=== PATIENT | female | born 1960 | race Caucasian/White ===

== ENCOUNTER 2017-07-12 15:46 | Emergency (ER) | payer MEDICAID ==
--- NOTE | 2017-07-12 16:07 | Emergency Department Record ---
History of Present Illness - General Chief complaint: Dental Stated complaint: DENTAL PAIN Time Seen by Provider: 07/12/17 16:01 Source: Patient Mode of Arrival: Ambulatory Limitations: No limitations - History of Present Illness Initial comments: 56 yo female presents to ED with a CC of right upper dental pain symptoms that began 3 days ago. Patient reports mild STS to the right maxillary region as well as pain radiating to that area. Patient reports several bad teeth and is concerned about an infection to the base of her teeth. Patient denies fevers, chills, or recent illness. MD complaint: Tooth pain Onset/Timin -: Days(s) Location: Tooth # 1 - pain, dental caries, no gingival abscess is present Quality: Aching Consistency: Constant Improves with: None Worsens with: None Context- Dental: Other - Related Data Previous Rx's Medication Instructions Recorded Clindamycin HCl 300 mg PO QID #28 capsule 07/12/17 Allergies Allergy/AdvReac Type Severity Reaction Status Date / Time No Known Drug Allergies Allergy Verified 07/12/17 15:55 Travel Screening - Travel/Exposure Within Last 30 Days Have you traveled within the last 30 days?: No Review of Systems Constitutional: Denies: Chills, Fever, Malaise, Night sweats Eyes: Denies: Eye discharge, Eye pain ENT: Reports: Dental pain. Denies: Congestion, Ear pain, Epistaxis Respiratory: Denies: Cough, Dyspnea Cardiovascular: Denies: Chest pain, Dyspnea on exertion Endocrine: Denies: Fatigue, Heat or cold intolerance Gastrointestinal: Denies: Abdominal pain, Nausea, Vomiting Genitourinary: Denies: Incontinence, Retention Musculoskeletal: Denies: Arthralgia, Back pain, Gout, Joint swelling Skin: Denies: Bruising, Change in color Neurological: Denies: Abnormal gait, Confusion, Headache, Seizure Psychiatric: Denies: Anxiety Hematological/Lymphatic: Denies: Anemia, Blood Clots Past Medical History - SOCIAL HISTORY Smoking Status: Never smoker Alcohol Use: None Drug Use: None - RESPIRATORY Hx Respiratory Disorders: No - CARDIOVASCULAR Hx Cardio Disorders: No - NEURO Hx Neuro Disorders: No - GI Hx GI Disorders: No - Hx Genitourinary Disorders: No - ENDOCRINE Hx Endocrine Disorders: No - MUSCULOSKELETAL Hx Musculoskeletal Disorders: No - PSYCH Hx Psych Problems: No - HEMATOLOGY/ONCOLOGY Hx Hematology/Oncology Disorders: No Family Medical History Any Significant Family History?: No Physical Exam - General General Appearance: Alert, Oriented x3, Cooperative, Mild distress Limitations: No limitations - Head Head exam: Atraumatic, Normocephalic, Normal inspection Head exam detail: negative: Abrasion, Contusion, Beckett's sign, General tenderness, Hematoma, Laceration - Eye Eye exam: Normal appearance. negative: Conjunctival injection, Periorbital swelling, Periorbital tenderness, Scleral icterus - ENT Ear exam: negative: Auricular hematoma, Auricular trauma Nasal Exam: negative: Active bleeding, Discharge, Dried blood, Foreign body Mouth exam: negative: Drooling, Laceration, Muffled voice, Tongue elevation Teeth exam: Dental caries, Dental tenderness # Throat exam: negative: R peritonsillar mass, L peritonsillar mass - Neck Neck exam: Normal inspection. negative: Meningismus, Tenderness - Respiratory Respiratory exam: Normal lung sounds bilaterally. negative: Rales, Respiratory distress, Rhonchi, Stridor - Cardiovascular Cardiovascular Exam: Regular rate, Normal rhythm, Normal heart sounds - GI/Abdominal GI/Abdominal exam: Soft. negative: Rebound, Rigid, Tenderness - Rectal Rectal exam: Deferred - exam: Deferred - Extremities Extremities exam: Normal inspection. negative: Calf tenderness, Pedal edema, Tenderness - Back Back exam: Denies: CVA tenderness (R), CVA tenderness (L) - Neurological Neurological exam: Alert, Normal gait, Oriented X3 - Psychiatric Psychiatric exam: Normal affect, Normal mood - Skin Skin exam: Normal color. negative: Abrasion Type of lesion: negative: abrasion Course Vital Signs 07/12/17 15:51 Temperature 98.6 F Pulse Rate 73 Respiratory 18 Rate Blood Pressure 119/85 Pulse Ox 99 - Reevaluation(s) Reevaluation #1: 07/12/17 16:04 Symptoms appear to be related to dental caries to tooth #6, will initiate treatment with Clindamycin with instructions to follow-up with her dentist next week. Patient agrees with the plan as discussed. Disposition Disposition: Discharge Clinical Impression: Dental caries Disposition: Home, Self-Care Condition: (2) Stable Instructions: Dental Abscess (ED) Additional Instructions: Return to ED if your symptoms worsen or if you have any concerns. Clindamycin as directed. Call your dentist for an appointment in 3-5 days as directed. Prescriptions: Clindamycin HCl 300 mg PO QID #28 capsule Forms: Patient Portal Access Time of Disposition: 16:07 Quality - Quality Measures Quality Measures: N/A - Blood Pressure Screening Does Patient Have Any of the Following: No Blood Pressure Classification: Pre-Hypertensive BP Reading Systolic Measurement: 119 Diastolic Measurement: 85 Screening for High Blood Pressure: < Pre-Hypertensive BP, F/U Documented > [ G8950] Pre-Hypertensive Follow-up Interventions: Referral to alternative/primary care provider.
== END 2017-07-12 16:13 | disposition home or self-care (01) ==
LOC: ER 15:46
DX: K02.9 Dental caries, unspecified (principal)
CPT/HCPCS: 99282

== ENCOUNTER 2019-09-30 09:31 | Emergency (ER) | payer MEDICAID ==
[2019-09-30] MEDS ORDERED: 0.9 % SODIUM CHLORIDE 1,000 ML BAG IV ONE (09:40)
--- NOTE | 2019-09-30 09:45 | Emergency Department Record ---
History of Present Illness - General Stated Complaint: RIB PAIN Time Seen by Provider: 09/30/19 09:35 Source: Patient Mode of Arrival: Ambulatory Limitations: No limitations - History of Present Illness Initial Comments: 59 yo female presents with left upper abdominal pain for about two weeks. She states the pain is associated with nausea, diarrhea, and bloating. No fevers. No blood in the stools. The pain location moves a little toward the epigastrium at times. The diarrhea changes color and consistency at times too. No history of a screening colonoscopy. No cough, chest pain, or rash. No dysuria. MD Complaint: Abdominal pain -: Week(s) (2) Location: LLQ Radiation: LLQ Migration to: LLQ Severity: Moderate Quality: Aching, Sharp Consistency: Intermittent Improves With: Nothing Worsens With: Bowel movement Context: Other Associated Symptoms: Anorexia, Diarrhea, Nausea - Related Data Home Medications Medication Instructions Recorded Confirmed Last Taken No Home Med [NO HOME MEDS] 09/30/19 09/30/19 Unknown Allergies Allergy/AdvReac Type Severity Reaction Status Date / Time No Known Drug Allergies Allergy Verified 09/30/19 09:45 Review of Systems Constitutional: Denies: Chills, Fever, Malaise, Weakness Eyes: Denies: Eye discharge ENT: Denies: Congestion, Ear pain, Epistaxis, Throat pain Respiratory: Denies: Cough, Dyspnea, Wheezes Cardiovascular: Denies: Chest pain, Palpitations, Syncope Endocrine: Denies: Fatigue, Polydipsia, Polyuria Gastrointestinal: Reports: Abdominal pain, Diarrhea, Nausea, Vomiting. Denies: Constipation, Hematemesis, Hematochezia, Melena Genitourinary: Denies: Dysuria, Urgency Musculoskeletal: Denies: Arthralgia, Back pain, Myalgia Skin: Denies: Bruising, Change in color, Rash Neurological: Denies: Headache, Numbness, Weakness Psychiatric: Denies: Anxiety Hematological/Lymphatic: Denies: Easy bleeding, Easy bruising Past Medical History - SOCIAL HISTORY Smoking Status: Never smoker Drug Use: None - RESPIRATORY Hx Respiratory Disorders: No - CARDIOVASCULAR Hx Cardio Disorders: No - NEURO Hx Neuro Disorders: No - GI Hx GI Disorders: No - Hx Genitourinary Disorders: No - ENDOCRINE Hx Endocrine Disorders: No - MUSCULOSKELETAL Hx Musculoskeletal Disorders: No - PSYCH Hx Psych Problems: No - HEMATOLOGY/ONCOLOGY Hx Hematology/Oncology Disorders: No Physical Exam - General General Appearance: Alert, Oriented x3, Cooperative, No acute distress Limitations: No limitations - Head Head exam: Atraumatic, Normal inspection - Eye Eye exam: Normal appearance, PERRL. negative: Conjunctival injection, Scleral icterus - ENT ENT exam: Normal exam, Mucous membranes moist, Normal orophraynx Ear exam: Normal external inspection Nasal Exam: Normal inspection Mouth exam: Normal external inspection - Neck Neck exam: Normal inspection, Full ROM. negative: Tenderness - Respiratory Respiratory exam: Normal lung sounds bilaterally. negative: Respiratory distress - Cardiovascular Cardiovascular Exam: Regular rate, Normal rhythm, Normal heart sounds - GI/Abdominal GI/Abdominal exam: Soft, Tenderness (very soft and benign abdomen, tender left upper quadrant otherwise non tender). negative: Distended, Guarding, Rebound, Rigid - Rectal Rectal exam: Deferred - exam: Deferred - Extremities Extremities exam: Normal inspection. negative: Calf tenderness, Pedal edema, Tenderness - Back Back exam: Reports: CVA tenderness (L). Denies: CVA tenderness (R), Full ROM, Paraspinal tenderness, Rash noted, Tenderness, Vertebral tenderness - Neurological Neurological exam: Alert, Oriented X3. negative: Abnormal gait, Normal gait - Psychiatric Psychiatric exam: Normal affect, Normal mood. negative: Agitated, Anxious - Skin Skin exam: Dry, Intact, Normal color, Warm Course - Reevaluation(s) Reevaluation #1: 09/30/19 10:25 The CBC is normal 09/30/19 10:36 The CMP was reviewed No acute significant abnormalities 09/30/19 10:36 Lipase is normal 09/30/19 11:15 The UA is negative for infection or acute abnormality 09/30/19 12:[address] scan is normal. The patient was referred to her PCP and GI for outpatient upper and lower endoscopy We discussed the results of the tests and questions were answered. The patient is doing well and is comfortable with DC. We discussed at length reasons to immediately return to the ED as well as close follow up. The patient will call the PCP for close follow up of this ED visit to review this visit and the tests performed DC vitals were reviewed. The patient was given a copy of the radiology reports to review with their [facility] doctor for follow up Medical Decision Making - Lab Data Result diagrams: 09/30/19 09:55 09/30/19 09:55 Disposition Disposition: Discharge Clinical Impression: Abdominal pain Disposition: Home, Self-Care Condition: (1) Good Instructions: Abdominal Pain (ED) Additional Instructions: Review this ER visit and the tests performed with your family doctor Call your doctor for the next available follow up appointment Return to the ER for a recheck immediately if worse, any new concerns or questions Take the prescriptions provided as directed Referrals: Amanda Cervantes N.P. [NURSE PRACTITIONER] - DAGOBERTO JACOBS [DOCTOR OF OSTEOPATH] - [facility] [Provider Group] Forms: Patient Portal Access Time of Disposition: 12:29 Quality - Quality Measures Quality Measures: N/A - Blood Pressure Screening Does Patient Have Any of the Following: No Blood Pressure Classification: Hypertensive Reading Systolic Measurement: 129 Diastolic Measurement: 95 Screening for High Blood Pressure: < Pre-Hypertensive BP, F/U Documented > [G8950] Pre-Hypertensive Follow-up Interventions: Referral to alternative/primary care provider.
[2019-09-30 10:15] LABS: ABSOLUTE NEUTROPHIL COUNT 4.13; BASO % 0.3 % (0-6); EOS % 1.2 % (0-6); GRAN % 63.1 % (47-80); HEMOGLOBIN 13.9 gm/dl (11.6-16.0); LYMPH % 27.4 % (16-45); MEAN CELL VOLUME 93.7 fl (81-97); MEAN CORPUSCULAR HEMOGLOBIN 30.3 pg (27-33); MEAN CORPUSCULAR HGB CONC 32.3 g/dl (32-36); PLATELET COUNT 268 K/uL (130-400); RED BLOOD COUNT 4.59 M/uL (3.80-5.40); RED CELL DISTRIBUTION WIDTH 12.4 % (11.5-14.5); WHITE BLOOD COUNT W/O DIFF 6.5 K/uL (4.2-12.2)
[2019-09-30 10:28] LABS: BLOOD UREA NITROGEN 22 mg/dL (6-20); CREATININE 0.6 mg/dL (0.5-0.9); EST GLOMERULAR FILTRATION RATE > 60 mL/min
[2019-09-30 10:29] LABS: LIPASE 37 U/L (13-60); TOTAL PROTEIN 8.5 g/dL (6.6-8.7)
[2019-09-30 10:31] LABS: GLUCOSE,RANDOM 92 mg/dL (74-109)
[2019-09-30 10:34] LABS: ALB/GLOB RATIO 1.6 (1.1-1.8); ALBUMIN 5.2 g/dL (4.0-5.0); ALKALINE PHOSPHATASE 96 U/L (35-104); ALT/SGPT 21 U/L (<33); AST/SGOT 21 U/L (10.0-35.0)
[2019-09-30 11:07] LABS: URINE APPEARANCE CLEAR; URINE BILIRUBIN NEGATIVE (NEGATIVE); URINE BLOOD TRACE-I (NEGATIVE); URINE COLOR YELLOW; URINE GLUCOSE (UA) NEGATIVE (NEGATIVE); URINE KETONE NEGATIVE (NEGATIVE); URINE LEUKOCYTE ESTERASE NEGATIVE (NEGATIVE); URINE NITRITE NEGATIVE (NEGATIVE); URINE PROTEIN NEGATIVE (NEGATIVE); URINE UROBILINOGEN 0.2 E.U./dL (0.20 - 1.00)
[2019-09-30 11:14] LABS: URINE EPITHELIAL CELLS 0 - 2 (FEW); URINE RBC 0 - 2 (NONE SEEN); URINE WBC NONE SEEN (0-2/hpf)
--- NOTE | 2019-09-30 12:18 | CT SCAN REPORT ---
EXAMINATION: CT Abdomen and Pelvis with IV Contrast EXAM DATE: 09/30/2019 11:29 AM TECHNIQUE: CT imaging of the abdomen and pelvis was performed with intravenous contrast. Coronal and sagittal images were reconstructed. IV Contrast: The amount and type of contrast are recorded in the medical record. INDICATION: left side abdominal pain COMPARISON: None ENCOUNTER: Not applicable CT ABDOMEN AND PELVIS FINDINGS: Lung Bases: Included extent of the lung bases are clear. Hepatobiliary: The liver has a normal size with a smooth surface. The hepatic and portal veins appear patent. There is no biliary dilatation and the gallbladder is unremarkable. Pancreas: The pancreas is normal. Spleen: The spleen is not enlarged. Adrenals: The adrenal glands are normal. Kidneys, Ureters, & Bladder: Both kidneys have a normal size and there is no hydronephrosis. Both ur eters have a normal caliber and the urinary bladder is unremarkable. Gastrointestinal: The stomach and small bowel are normal with no obstruction or inflammation. The ludwin endix is normal. The large bowel is normal. Reproductive Organs: The uterus and ovaries appear within normal limits though are not optimally asse ssed on CT imaging. Lymphatic System: There is no adenopathy within the abdomen or pelvis. Vasculature: Normal caliber abdominal aorta with mild atherosclerotic disease. The main abdominal ao rtic branch vessels including the celiac, mesenteric, and renal arteries appear patent with no eviden ce of a stenosis. There is no evidence for mesenteric venous thrombosis. Peritoneum: Minimal pelvic free fluid. No free air. No inflammatory changes suspected. Abdominal Wall & Musculoskeletal: No suspicious bone lesions. Degenerative discogenic changes through out the lumbar spine especially L3-L4 and L4-L5. Mild diffuse osteopenia. IMPRESSION: Incidental findings as above. No specific CT abnormalities to correlate with left-sided abdominal jadiel n. Dictated by: Manav Lawton DO on 09/30/2019 12:08 PM. .
== END 2019-09-30 12:48 | disposition home or self-care (01) ==
LOC: ER 09:31
DX: R10.12 Left upper quadrant pain (principal); R19.7 Diarrhea, unspecified; R11.2 Nausea with vomiting, unspecified
CPT/HCPCS: 74177; 80053; 81001; 83690; 85025; 99284

== ENCOUNTER 2019-10-21 12:33 | Day surgery (SDC) | payer MEDICAID ==
[2019-10-21] MEDS ORDERED: PROPOFOL 10 MG/ML VIAL IV ONE (12:34)
[2019-10-21] MEDS ORDERED: FENTANYL PF 100MCG/2ML VIAL IV ONE (12:34)
[2019-10-21] MEDS ORDERED: LIDOCAINE 2% MDV (20MG/ML) 20ML VIAL IV ONE (12:34)
--- NOTE | 2019-10-22 06:50 | Operative Note ---
OPERATION: 1. ESOPHAGOGASTRODUODENOSCOPY with biopsy. 2. COLONOSCOPY with cold snare polypectomy. PREOPERATIVE DIAGNOSES: 1. Left upper quadrant pain. 2. Colon cancer screening. POSTOPERATIVE DIAGNOSES: 1. Mild villous flattening, rule out celiac. 2. Gastritis. 3. Transverse colon polyp. PROCEDURE: After informed consent was obtained from the patient, she was placed in the left lateral decubitus position in the endoscopy suite, sedated and monitored by the department of anesthesia. A well-lubricated [id number] gastroscope was placed in the posterior oropharynx under direct visualization and passed to the proximal esophagus. The endoscope was advanced through the proximal, mid, and distal esophagus. The GE junction was unremarkable. The esophagus appeared normal. The gastric body demonstrated some mild erythematous changes in the distal body/antrum. The pylorus was unrevealing. The duodenal bulb and sweep demonstrated some patchy mild villous flattening of unclear significance, perhaps a normal variant. However, biopsies were obtained to rule out occult celiac sprue. Gastric biopsies are also obtained. J-turn views of the proximal stomach were unrevealing. The endoscope was straightened and retracted from the patient with no new findings noted. Digital rectal exam was unrevealing. A well-lubricated [id number] colonoscope was inserted into the rectum and advanced to the cecum. The cecum, cecal bulb, ileocecal valve, and ascending colon were unremarkable. There was a 5-6 mm sessile transverse colon polyp removed with a cold snare. The remainder of the transverse colon, descending colon, sigmoid colon, and rectum were unrevealing. J-turn views of the anorectum were unremarkable. The endoscope was straightened, the rectal ampulla deflated, and the endoscope was removed. RECOMMENDATIONS: I would suggest the patient resume her medications. Further recommendations based on tissue histology. As always, thank you for allowing me to participate in the healthcare of your patients. ESVIN
== END 2019-10-21 14:35 | disposition home or self-care (01) ==
LOC: HOP 12:33
PROVIDERS: ATTEND Internal Medicine Gastroenterology
DX: Z12.11 Encounter for screening for malignant neoplasm of colon (principal); R10.12 Left upper quadrant pain; K29.50 Unspecified chronic gastritis without bleeding; D12.3 Benign neoplasm of transverse colon